=== PATIENT | male | born 1985 | race Caucasian/White ===

== ENCOUNTER → 2022-07-07 14:43 | Outpatient (CLI) | payer BC, SELFPAY ==
[2022-07-07 19:52] LABS: Basophils # 0.1 K/mm3 (0-0.2); Basophils % 0.6 % (0.1-2.0); Eosinophils # 0.1 K/mm3 (0.0-0.4); Eosinophils % 1.2 % (0.1-12.0); Hematocrit 47.7 % (42.0-52.0); Hemoglobin 15.5 g/dL (14.1-18.0); Lymphocytes % 36.6 % (10-50); Mean Corpuscular HGB Conc 32.5 g/dL (31.8-35.4); Mean Corpuscular Volume 89.1 fl (80-94); Mean Platelet Volume 9.9 fl (7.4-10.4); Monocytes # 0.4 K/mm3 (0.1-1.0); Monocytes % 4.9 % (1.7-9.3); Neutrophils # 4.6 K/mm3 (1.8-7.8); Neutrophils % 56.7 % (37.0-80.0); Platelet Count 279 K/mm3 (142-424); Red Blood Count 5.36 M/mm3 (4.60-6.20); Red Cell Distribution Width 12.5 % (11.5-17.5); White Blood Count 8.1 K/mm3 (4.8-10.8)
[2022-07-07 20:02] LABS: Alanine Aminotransferase 24 U/L (12-78); Alkaline Phosphatase 78 U/L (38-126); Anion Gap 12.8 mEq/L (5-15); Aspartate Amino Transferase 41 U/L (17-59); Blood Urea Nitrogen 23 mg/dl (9-20); Calcium 9.5 mg/dl (8.4-10.2); Carbon Dioxide 29 mmol/L (22.0-30.0); Chloride 99 mmol/L (98-107); Chol/HDL Ratio 2.3 (1-3.5); Cholesterol 178 mg/dl (140-200); Estimated Glomerular Filt Rate 110 ml/min (>60); GFR (African American) 133 ML/MIN (>60); Globulin 2.5 g/dL (1.3-3.2); Glucose 74 mg/dl (74-100); HDL Cholesterol 76 mg/dl (40-60); Potassium 3.8 mmoL/L (3.5-5.1); Sodium 137 mmol/L (136-145); Total Protein,Serum 7.5 g/dl (6.3-8.2); Triglycerides 74 mg/dl (30-150); VLDL Cholesterol 15 mg/dL (0-40)
[2022-07-07 20:15] LABS: Direct LDL Cholesterol 75.48 mg/dL (100-129)
[2022-07-07 20:21] LABS: 25-OH Vitamin D, Total 46.5 ng/mL (30-100)
[2022-07-07 20:34] LABS: Thyroid Stimulating Hormone 1.34 uIU/mL (0.465-4.68)
== END ==
LOC: LAB.DROPOF 07-08 07:37
PROVIDERS: PCP Physician Assistant; Visit Provider Physician Assistant
DX: E78.00 Pure hypercholesterolemia, unspecified (principal); R17 Unspecified jaundice; M25.562 Pain in left knee
CPT/HCPCS: 80053; 80061; 82248; 82306; 84443; 85025

== ENCOUNTER → 2022-07-21 07:24 | Outpatient (CLI) | payer BC, SELFPAY ==
--- NOTE | 2022-07-21 07:24 | US_ITS ---
FINAL REPORT CLINICAL HISTORY: elevated bilirubin FINDINGS: Ultrasound images of the right upper quadrant were obtained. The pancreas is partially obscured. The liver parenchyma is normal in echogenicity. The gallbladder is well visualized and the wall appears normal. There are no gallstones. The common duct is normal. Limited images of the right kidney are unremarkable. IMPRESSION: No acute process. Reviewed, Interpreted and Dictated by Felix Jackson III, MD Transcribed by Cristi Garner Authenticated and [facility]
--- NOTE | 2022-07-21 07:45 | XR_ITS ---
FINAL REPORT CLINICAL HISTORY: left knee pain..hurt it years back and sliced it open FINDINGS: 3 views of the left knee were obtained. There is focal bony overgrowth or an enthesophyte of the medial distal femur of doubtful clinical significance. There is no acute fracture or dislocation. The joint spaces are intact. There is no soft tissue abnormality. IMPRESSION: No acute process. Reviewed, Interpreted and Dictated by Felix Jackson III, MD Transcribed by Cristi Garner Authenticated and [facility]
== END ==
LOC: RAD 07:24
PROVIDERS: PCP Physician Assistant; Visit Provider Physician Assistant
DX: R17 Unspecified jaundice (principal); M25.562 Pain in left knee
CPT/HCPCS: 73562; 76705

== ENCOUNTER → 2022-11-02 15:27 | Outpatient (CLI) | payer BC, SELFPAY ==
--- NOTE | 2022-11-02 15:30 | CA_ITS ---
FINAL REPORT TECHNIQUE: Compression barrientos scale and Doppler evaluation CLINICAL HISTORY: left leg pain and edema. Patient denies trauma. States he noticed some veins protruding in his left posterior calf. He states they felt hot to the touch. No history of DVT. He states he is on his feet a lot for work. COMPARISON: None FINDINGS: Femoral and popliteal veins show normal compressibility and flow. Visualized portion of the calf veins are patent by Doppler exam. IMPRESSION: No evidence of left lower extremity deep venous thrombosis Reviewed, Interpreted and Dictated by Hao Byrne MD Transcribed by Daphney Rapp Authenticated and [facility]
== END ==
LOC: RT 15:28
PROVIDERS: PCP Physician Assistant; Visit Provider Physician Assistant
DX: M79.605 Pain in left leg (principal)
CPT/HCPCS: 93971